=== PATIENT | female | born 2000 | race Caucasian/White ===

== ENCOUNTER 2020-05-23 14:26 | Emergency (ER) | payer MEDICAID, SELFPAY ==
--- NOTE | ~2020-05-23 | US_ITS ---
EXAMINATION: LEFT LOWER EXTREMITY DEEP VENOUS ULTRASOUND CLINICAL INFORMATION: Left lower extremity pain COMPARISON: None. TECHNIQUE: Duplex Doppler imaging with compression maneuvers were performed of the left lower extremity deep venous system. FINDINGS: The visualized common femoral, femoral and popliteal veins demonstrate normal compressibility and color flow without evidence of venous thrombosis. Visualized portions of the calf veins demonstrate normal color fill-in suggesting patency. There is no evidence of a Irvin's cyst. US/US venous duplex LE LT IMPRESSION: No evidence of deep venous thrombosis involving the left lower extremity.
[2020-05-23 14:43] VITALS: BP 126/80; PULSE 81; RESP 16; TEMP 36.9; O2SAT 99; BMI 26.4
--- NOTE | 2020-05-23 17:20 | ED.LOWEXIN ---
HPI - Extremity Injury (Lower) General Chief Complaint: Extremity Injury, Lower Stated Complaint: blood clot left leg Time Seen by Provider: 05/23/20 15:53 Source: patient Mode of arrival: ambulatory History of Present Illness HPI Narrative: 20-year-old female with past medical history of asthma presenting to the ED complaining of right lower extremity pain and swelling from calf to thigh x2 weeks. States she is concerned for DVT. Denies recent travel, cigarette smoking, history of clots, oral OCPs, trauma/falls, shortness of breath/cough, chest pain MD complaint: leg injury Related Data Allergies Allergy/AdvReac Type Severity Reaction Status Date / Time No Known Allergies Allergy Unverified 11/17/19 17:05 Review of Systems Review of Systems: Constitutional: No Fever, No Chills Cardiovascular: No Chest Pain, No SOB Musculoskeletal:+ joint pain, No Myalgias, + Joint Swelling Skin: No Skin Lesions, No rash Neuro: No Weakness, No Numbness, No Paresthesias Yes all other systems are reviewed and are negative PMFSH Past Medical History Attestation statement: The following information was validated with the patient. Medical History (Updated 05/23/20 @ 18:09 by MARIAN Loya) Asthma Social History Social History Alcohol intake: never Smoked in Last 30 Days: No Substance Use Type: Marijuana Advance Directives: No Advance Directives Information Provided: No Physical Exam Vital Signs: Vital Signs: Last Vital Signs Temp 98.5 F 05/23/20 14:43 Pulse 81 05/23/20 14:43 Resp 16 05/23/20 14:43 BP 126/80 05/23/20 14:43 Pulse Ox 99 05/23/20 14:43 Body Mass Index 26.4 Const: General: cooperative and healthy appearing Orientation/consciousness: patient oriented x3 Limitations: no limitations HENMT: Head: Yes normal to inspection Ears: hearing grossly normal bilaterally General nose exam: Normal external nose present Face and sinus: Yes normal facial exam Eyes: General: appearance normal, both eyes and all related structures EOM: EOMs intact bilaterally Neck: Neck: Yes normal visual inspection Resp: Effort & Inspection: normal respiratory effort Cardio: Rate: regular rate Peripheral pulses: dorsalis pedis present Skin: Rashes: no rashes Wounds: no wounds Neuro: General: patient oriented x3, gait normal, tone normal and moves all extremities Gait exam (Neuro): Normal gait present Extrem: Other: No lower extremity cellulitis, erythema, fluctuance/ induration or streaking General: Yes normal to inspection, Yes no pedal edema and Yes calf tenderness (left) Course Course Course Narrative: US venous duplex LE LT IMPRESSION: No evidence of deep venous thrombosis involving the left lower extremity. >> results discussed with patient including worrisome signs and symptoms and strict return precautions. She verbalized understanding feel safe for discharge home follow-up PCP MDM - Extremity Injury (Lower) MDM Narrative Medical decision making narrative: 20-year-old female with past medical history of asthma presenting to the ED complaining of right lower extremity pain and swelling from calf to thigh x2 weeks. On exam VSS, NAD/well-appearing, left lower extremity with calf tenderness, no appreciable swelling/edema. No appreciable cellulitis Plan: Venous duplex ultrasound Discharge Plan Discharge Clinical Impression: Leg pain, left Patient Disposition: Home, Self-Care Instructions: Leg Pain (ED) Additional Instructions: Your ultrasound was negative for any blood clot You may ice and heat your leg Take Tylenol Motrin for pain Elevate Follow-up with her primary care doctor If her pain persists or worsen, he develops any signs of infection, there is red streaking, numbness, tingling or weakness return to the ED Referrals: Name,MD Pawel [Primary Care Provider] - 2 days
== END 2020-05-23 18:37 | disposition home or self-care (01) ==
PROVIDERS: Emergency Provider Emergency Medicine; PCP Internal Medicine Geriatric Medicine
DX: R60.0 Localized edema (principal); M79.605 Pain in left leg
CPT/HCPCS: 93971; 99284

== ENCOUNTER → 2020-06-27 10:29 | Outpatient (BNVA) | payer MEDICAID, SELFPAY | PROVIDERS: Visit Provider Advanced Practice Midwife | DX: Z32.02 Encounter for pregnancy test, result negative (principal); Z30.09 Encounter for other general counseling and advice on contraception | CPT/HCPCS: 81025; 99212 ==

== ENCOUNTER 2020-07-07 17:08 | Emergency (ER) | payer MEDICAID, SELFPAY ==
--- NOTE | ~2020-07-07 | XR_ITS ---
EXAMINATION: XR CHEST CLINICAL INFORMATION: Hemoptysis COMPARISON: None TECHNIQUE: Frontal view of the chest was obtained. FINDINGS: No significant abnormality is noted involving the heart, lungs, mediastinum, bony thorax or soft tissues. XR/XR chest 1V IMPRESSION: Normal chest x-ray.
[2020-07-07 17:20] VITALS: BP 117/76; PULSE 85; RESP 16; TEMP 36.5; O2SAT 99; BMI 28.1
--- NOTE | 2020-07-07 17:41 | ED_ITS ---
HPI - General Adult General Chief complaint: Epistaxis Stated complaint: Coughing up blood Time Seen by Provider: 07/07/20 17:33 Source: patient Mode of arrival: ambulatory Limitations: no limitations History of Present Illness HPI narrative: Patient comes emergency room complaining of seasonal allergies. Patient states that she has had stuffy nose for 3 weeks, sneezing, epistaxis, and recently noticed that she has been coughing up blood, very small amounts. Patient denies chest pain or shortness of breath. No fever. Related Data Previous Rx's Medication Instructions Recorded norethindrone 1 mg-ethinyl 1 tab PO DAILY #28 tab 06/27/20 estradiol 20 mcg (24)-iron 75 mg (4) tablet cetirizine [Zyrtec] 10 mg PO DAILY #20 tab 07/07/20 fluticasone propionate [Flonase 1 spray INTRANASAL Q12H #16 g 07/07/20 Allergy Relief] Allergies Allergy/AdvReac Type Severity Reaction Status Date / Time No Known Allergies Allergy Verified 06/27/20 10:43 Review of Systems Review of Systems: Constitutional : No Weight loss, No Fever, No Chills, No Night Sweats, No Fatigue, No Malaise ENT/Mouth : No Hearing loss, complaining of bilateral ear fullness with no pain, complaining of nasal congestion, No Sinus Pain, No Hoarseness, No sore throat, No Swallowing Difficulty Eyes: No Eye Pain, No Swelling, occasional Redness and itching, No Foreign Body, No Discharge, No Vision Changes Cardiovascular : No Chest Pain, No SOB, No Dyspnea on Exertion, No Orthopnea, No Edema, No Palpitations Respiratory : Dry Cough, No Sputum, occasional asthma exacerbations, No Smoke Exposure, No Dyspnea, occasional hemoptysis Gastrointestinal : No Nausea, No Vomiting, No Diarrhea, No Constipation, No abdominal Pain, No Hematochezia, No Melena Genitourinary : no irregular bleeding, No Dysuria, No Urinary Frequency, No Hematuria, No Urinary Incontinence, No Urgency, No Flank Pain, No Urinary Flow Changes, No Hesitancy Musculoskeletal : No joint pain, No Myalgias, No Joint Swelling Skin : No Skin Lesions, No rash Neuro : No Weakness, No Numbness, No Paresthesias, No Loss of Consciousness, No Dizziness, No Headache Psych : No Anxiety/Panic, No Depression, No SI/HI/AH/VH, No Social Issues, Heme/Lymph: No Bruising, No Bleeding,No Lymphadenopathy Endocrine : No Polyuria, No Polydipsia, No Temperature Intolerance [facility] Past Medical History Medical History Asthma Seasonal allergies Social History Social History (Updated 06/27/20 @ 10:44 by Katie Baca CMA) Alcohol intake: never Smoked in Last 30 Days: No Use of substances other than those prescribed or required for medical reasons: No Substance Use Type: Marijuana Advance Directives: No Advance Directives Information Provided: Yes Patient : No Gender identity: female Physical Exam Vital Signs: Vital Signs: Last Vital Signs Temp 97.7 F 07/07/20 17:20 Pulse 85 07/07/20 17:20 Resp 18 07/07/20 18:00 BP 117/76 07/07/20 17:20 Pulse Ox 99 07/07/20 17:20 Body Mass Index 28.1 Appearance: Alert. Oriented X3. No acute distress. Eyes: Pupils equal, round and reactive to light. ENT: Pharynx normal. Nasal congestion, no epistaxis Neck: Normal inspection. Neck supple. No lymph nodes noted. No crepitus CVS: Normal heart rate and rhythm. Pulses normal. Normal S1 and S2 Respiratory: No respiratory distress. Breath sounds normal. No Wheezing. No rales Abdomen: Soft and nontender. No rigidity. No distention. good BS x4 Skin: Skin warm and dry. Normal skin color. Normal skin turgor. Extremities: No lower extremity edema. No lower extremity edema. No Lacerations. No Rash Neuro: Oriented X 3. No motor deficit. No sensory deficit. Moving all extermities. No slurred speech. Course Course Course Narrative: I discussed the x-ray with the patient, patient likely having specks of blood when she coughs, unlikely to be coming from the lungs, most likely secondary to the epistaxis. Medical Decision Making Imaging Data Chest x-ray: Radiologist's impression: No significant abnormality is noted involving the heart, lungs, mediastinum, bony thorax or soft tissues. XR/XR chest 1V IMPRESSION: Normal chest x-ray. Discharge Plan Discharge Clinical Impression: Acute seasonal allergic rhinitis Patient Disposition: Home, Self-Care Instructions: Allergies (ED) Additional Instructions: Please follow-up with your primary care physician tomorrow. If you have any worsening or new symptoms, please return to the emergency room or call 911 Prescriptions: New cetirizine [Zyrtec] 10 mg tablet 10 mg PO DAILY Qty: 20 RF: 0 fluticasone propionate [Flonase Allergy Relief] 50 mcg/actuation spray,suspension 1 spray intranasal Q12H Qty: 16 RF: 0 No Action norethindrone-e.estradiol-iron 1 mg-20 mcg (24)/75 mg (4) tablet 1 tab PO DAILY Qty: 28 RF: 4
[2020-07-07 18:00] VITALS: RESP 18
--- NOTE | 2020-07-07 19:37 | PC.NURSE ---
no epistaxis noted since arrival in ed. Pt speaking on phone. rr even and unlabored. skin p/w/d.
== END 2020-07-07 20:11 | disposition home or self-care (01) ==
PROVIDERS: Emergency Provider Emergency Medicine; PCP Internal Medicine Geriatric Medicine
DX: J30.2 Other seasonal allergic rhinitis (principal); J45.909 Unspecified asthma, uncomplicated; F12.90 Cannabis use, unspecified, uncomplicated
CPT/HCPCS: 71045; 99283; 99284

== ENCOUNTER 2020-11-02 19:52 | Emergency (ER) | payer MEDICAID, SELFPAY ==
--- NOTE | 2020-11-02 21:07 | PC.NURSE ---
CALLED FOR TRIAGE, NO RESPONSE
--- NOTE | 2020-11-02 21:18 | PC.NURSE ---
CALLED AGAIN, NO RESPONSE
== END 2020-11-02 22:12 | disposition left against medical advice (07) ==
PROVIDERS: Emergency Provider Emergency Medicine; PCP Nurse Practitioner Primary Care
DX: R05 Cough (principal)

== ENCOUNTER 2020-12-19 10:46 | Outpatient (RCR) | payer MEDICAID, SELFPAY | END 2021-05-27 14:53 | disposition home or self-care (01) | LOC: HO.PT 10:46 | PROVIDERS: PCP Nurse Practitioner Primary Care; Visit Provider Nurse Practitioner Primary Care | DX: M54.50 Low back pain, unspecified (principal) | CPT/HCPCS: 97110; 97112; 97162 ==

== ENCOUNTER 2021-01-02 11:00 | Outpatient (REF) | payer MEDICAID, SELFPAY ==
[2021-01-02 15:57] LABS: CT PCR NOT DETECTED (Not Detect.); NG PCR NOT DETECTED (Not Detect.)
[2021-01-03 11:05] LABS: BV Int Neg Control Negative (Negative); BV Int Pos Control Positive (Positive)
== END 2021-01-02 11:01 | disposition home or self-care (01) ==
LOC: HO.LAB 11:00
PROVIDERS: Visit Provider Advanced Practice Midwife
DX: Z30.09 Encounter for other general counseling and advice on contraception (principal); N89.8 Other specified noninflammatory disorders of vagina; Z20.2 Contact with and (suspected) exposure to infections with a predominantly sexual mode of transmission; N92.1 Excessive and frequent menstruation with irregular cycle
CPT/HCPCS: 87480; 87491; 87510; 87591; 87660; 99212

== ENCOUNTER 2021-02-01 19:35 | Emergency (ER) | payer MEDICAID, SELFPAY | END 2021-02-01 20:42 | disposition left against medical advice (07) | PROVIDERS: Emergency Provider Emergency Medicine | DX: H53.8 Other visual disturbances (principal) ==

== ENCOUNTER → 2021-03-28 09:30 | Outpatient (BNVA) | payer MEDICAID, SELFPAY | PROVIDERS: Visit Provider Advanced Practice Midwife | DX: N91.2 Amenorrhea, unspecified (principal); Z30.09 Encounter for other general counseling and advice on contraception; N92.1 Excessive and frequent menstruation with irregular cycle; R53.83 Other fatigue; Z62.810 Personal history of physical and sexual abuse in childhood; Z20.2 Contact with and (suspected) exposure to infections with a predominantly sexual mode of transmission | CPT/HCPCS: 81025; 99212 ==

== ENCOUNTER 2021-04-24 00:20 | Emergency (ER) | payer MEDICAID, SELFPAY ==
[2021-04-24 00:54] VITALS: BP 122/90; PULSE 83; RESP 18; TEMP 36.9; O2SAT 100; BMI 24.3
[2021-04-24 04:04] VITALS: BP 122/80; PULSE 78; RESP 12; TEMP 36.6; O2SAT 100
--- NOTE | 2021-04-24 04:23 | ED_ITS ---
HPI - Headache General Chief Complaint: Headache Stated Complaint: head inj at work Time Seen by Provider: 04/24/21 04:22 Source: patient Mode of arrival: ambulatory History of Present Illness HPI Narrative: 21-year-old female without significant past medical history presents with complaints that she hit her head on the stairs at work without loss of consciousness and denies any subsequent nausea or vomiting and does not take any blood thinners. She complains of headache to the left side of her head at this time. Related Data Home Medications Medication Instructions Recorded Confirmed albuterol sulfate 90 mcg/actuation 2 puff INHALATION Q6H PRN 03/28/21 03/28/21 aerosol inhaler Previous Rx's Medication Instructions Recorded fluticasone propionate 50 1 spray INTRANASAL Q12H #16 g 07/07/20 mcg/actuation nasal spray,suspension (Flonase Allergy Relief) Allergies Allergy/AdvReac Type Severity Reaction Status Date / Time Seasonal Allergies Allergy Unknown Verified 04/24/21 00:54 Review of Systems Review of Systems: Pertinent positives and negatives as stated in HPI 10 point review of systems is otherwise negative. PMFSH Past Medical History Source: nursing notes reviewed Medical History Asthma Seasonal allergies Social History Social History Alcohol intake: never Substance Use Type: Marijuana Advance Directives: No Advance Directives Information Provided: No Patient : No Gender identity: Female Physical Exam Vital Signs: Vital Signs: Last Vital Signs Temp 97.9 F 04/24/21 04:04 Pulse 78 04/24/21 04:04 Resp 12 04/24/21 04:04 BP 122/80 04/24/21 04:04 Pulse Ox 100 04/24/21 04:04 BMI result Body Mass Index 24.3 VITAL SIGNS: Reviewed. GENERAL: Well developed, well nourished, in no acute distress. HEAD: Normocephalic/atraumatic, unable to locate any visible manifestation of patient's injury but there is no erythema/abrasions/induration/ecchymosis EYES: PERRLA, EOMI OROPHARYNX: no oral lesions noted, posterior pharynx clear LUNGS: Normal breath sounds. No adventitious sounds or accessory muscle use. SpO2<100> CARDIOVASCULAR: Regular rate and rhythm without noted murmurs ABDOMEN: Soft, non-tender, non-distended with bowel sounds. NEUROLOGIC: Alert and oriented x 4. Strength and sensation to light touch were grossly intact x 4. Course Course Course Narrative: 21-year-old female with history and clinical presentation consistent with a mild head strike without loss of consciousness. Combination analgesics were provided and on re-evaluation patient is feeling better and was discharged home in stable condition. Discharge Plan Discharge Clinical Impression: Contusion Patient Disposition: Home, Self-Care Instructions: General Headache (ED) Additional Instructions: 1. Recommend [id number] Tylenol/ibuprofen as needed for headache. 2. Follow-up with your primary care provider for re-evaluation further outpa tient management. Return to the ER for worsening symptoms. 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
[2021-04-24] MEDS: Ibuprofen 400 MG TABLET PO (04:36)
[2021-04-24] MEDS: Acetaminophen 325 MG TABLET 975 MG PO (04:36)
== END 2021-04-24 04:37 | disposition home or self-care (01) ==
PROVIDERS: Emergency Provider Student in an Organized Health Care Education/Training Program; PCP Nurse Practitioner Primary Care
DX: S00.93XA Contusion of unspecified part of head, initial encounter (principal); W22.09XA Striking against other stationary object, initial encounter; R51.9 Headache, unspecified; Y93.89 Activity, other specified; Y92.59 Other trade areas as the place of occurrence of the external cause; Y99.0 Civilian activity done for income or pay
CPT/HCPCS: 99283

== ENCOUNTER 2021-05-09 11:30 | Outpatient (REF) | payer MEDICAID, SELFPAY ==
--- NOTE | ~2021-05-09 | US_ITS ---
EXAMINATION: US PELVIS CLINICAL INFORMATION: Amenorrhea COMPARISON: None TECHNIQUE: Ultrasound of the pelvis is performed using both transabdominal and transvaginal transducers along with Doppler. Transvaginal imaging is performed due to inadequate visualization transabdominally. FINDINGS: Uterus: The uterus is retroverted and measures 8.2 x 3.4 x 4.8 cm. The double wall endometrial thickness is 0.6 mm. The uterus is smooth in contour and has normal myometrial echogenicity. No visible fibroid. Adnexa: Both ovaries are visualized. There is normal color flow to the adnexa. There is no ovarian torsion. There is no pelvic ascites or fluid collection. Right ovary measures 4 x 2.5 x 2.5 cm. Multiple peripheral small follicles are seen, with at least 10 follicles visualized. Left ovary measures 3.3 x 1.5 x 2.5 cm. Multiple peripheral small follicles are seen with at least 8 follicles noted. US/US pelvic and transvaginal IMPRESSION: Multiple bilateral small peripheral ovarian follicles. Correlate for PCOS. Normal appearance of the uterus.
== END 2021-05-09 11:31 | disposition home or self-care (01) ==
LOC: HO.US 11:30
PROVIDERS: Visit Provider Advanced Practice Midwife
DX: N91.2 Amenorrhea, unspecified (principal); N92.1 Excessive and frequent menstruation with irregular cycle; R53.83 Other fatigue; Z20.2 Contact with and (suspected) exposure to infections with a predominantly sexual mode of transmission; Z62.810 Personal history of physical and sexual abuse in childhood
CPT/HCPCS: 76830; 76856

== ENCOUNTER 2021-07-08 11:35 | Outpatient (REF) | payer MEDICAID, SELFPAY ==
[2021-07-08 17:17] LABS: CT PCR NOT DETECTED (Not Detect.); NG PCR NOT DETECTED (Not Detect.)
[2021-07-09 11:14] LABS: BV Int Neg Control Negative (Negative); BV Int Pos Control Positive (Positive)
== END 2021-07-08 11:36 | disposition home or self-care (01) ==
LOC: HO.LAB 11:35
PROVIDERS: PCP Nurse Practitioner Primary Care; Visit Provider Advanced Practice Midwife
DX: Z30.09 Encounter for other general counseling and advice on contraception (principal); Z20.2 Contact with and (suspected) exposure to infections with a predominantly sexual mode of transmission; E28.2 Polycystic ovarian syndrome
CPT/HCPCS: 87480; 87491; 87510; 87591; 87660; 88142

== ENCOUNTER 2021-10-16 14:28 | Outpatient (REF) | payer MEDICAID, SELFPAY | END 2021-10-16 14:29 | disposition home or self-care (01) | LOC: HO.LAB 14:28 | PROVIDERS: Visit Provider Advanced Practice Midwife | DX: Z12.4 Encounter for screening for malignant neoplasm of cervix (principal); E28.2 Polycystic ovarian syndrome; Z78.9 Other specified health status | CPT/HCPCS: 88142; 99212 ==

== ENCOUNTER 2021-10-24 13:36 | Outpatient (REF) | payer MEDICAID, SELFPAY ==
--- NOTE | ~2021-10-24 | XR_ITS ---
EXAMINATION: XR CERVICAL SPINE CLINICAL INFORMATION: Neck pain COMPARISON: None TECHNIQUE: 3 views of the cervical spine were obtained. FINDINGS: Bone alignment is normal. No fracture or dislocation is seen. Disc spaces are normal. Prevertebral soft tissues are normal. XR/XR cervical spine 3V IMPRESSION: Unremarkable examination.
== END 2021-10-24 13:37 | disposition home or self-care (01) ==
LOC: HO.XRAY 13:36
PROVIDERS: Visit Provider Nurse Practitioner Family
DX: M54.6 Pain in thoracic spine (principal)
CPT/HCPCS: 72040

== ENCOUNTER 2023-03-20 10:46 | Outpatient (REF) | payer MEDICAID, SELFPAY ==
[2023-03-21 06:05] LABS: CT PCR NOT DETECTED (Not Detect.); NG PCR NOT DETECTED (Not Detect.)
[2023-03-21 12:50] LABS: BV Int Neg Control Negative (Negative); BV Int Pos Control Positive (Positive)
== END 2023-03-20 10:47 | disposition home or self-care (01) ==
LOC: HO.LNP 10:46
PROVIDERS: PCP Nurse Practitioner Primary Care; Visit Provider Advanced Practice Midwife
DX: Z01.419 Encounter for gynecological examination (general) (routine) without abnormal findings (principal); E28.2 Polycystic ovarian syndrome; Z20.2 Contact with and (suspected) exposure to infections with a predominantly sexual mode of transmission; Z79.899 Other long term (current) drug therapy
CPT/HCPCS: 0353U; 87480; 87510; 87660; 99395

== ENCOUNTER 2023-03-20 10:46 | Outpatient (AMB) | payer MEDICAID, SELFPAY ==
--- NOTE | 2023-03-20 10:57 | MHC.OFFVIS ---
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 Tub Wash Operator Required: No Information Interpreted: non-clinical & clinical Registered Vascular Technologist (Rvt): Registered Vascular Technologist (Rvt) Present (Andra) Allergies Seasonal Allergies Allergy (Verified 03/20/23 11:01) Unknown Medication List - Last Reconciled 03/20/23 by Jaki Lopez CNM albuterol sulfate 90 mcg/actuation 2 puffs inhalation Q6H PRN cetirizine 10 mg PO QAM doxycycline hyclate 100 mg PO QAM fluticasone propion-salmeterol 230-21 mcg/actuation (Advair HFA) inhalation fluticasone propionate 50 mcg/actuation (Flonase Allergy Relief) 1 spray intranasal Q12H Is last menstrual period known: Yes Last menstrual period: 02/18/23 Post menopausal: No 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 She wonders if she might have trouble because her periods are irregular though when I had her go over the last 2 they were 30 days apart her last period came February 18 and ended on the and her previous period in December came on the as well what she thought was irregular is that sometimes the periods comes for a few days then it stops and then it starts back up again but that has been known to happen in the middle of a menses as well. Her last Pap was normal and she has no history of abnormal Paps. [facility] [place] Medical History (Updated 03/20/23 @ 13:21 by Jaki Lopez CNM) PCOS (polycystic ovarian syndrome) Seasonal allergies Asthma Surgical History (Updated 03/20/23 @ 11:03 by CHICA Davis) Hx of tonsillectomy Social History (Updated 03/20/23 @ 11:03 by CHICA Davis) Alcohol intake: current Alcohol intake frequency: holidays/special occasions only Substance Use Type: Marijuana Gender identity: Female Female Reproductive History Menstrual Age of Menarche: 8 Duration of menses: 6-7 days Date of last menstrual period: 02/18/23 control method: none Total pregnancies: 0 Date of last pap smear: 10/17/21 (negative) Physical Exam Vital Signs: Last Vital Signs BP 118/72 03/20/23 10:59 BMI result Body Mass Index 30.4 Const General: healthy appearing, comfortable, no acute distress, well developed and alert Nutritional Appearance: average body habitus Orientation/consciousness: patient oriented x3 Limitations: no limitations HEENT Head: Yes normocephalic Neck Neck: Yes normal visual inspection Chest Chest palpation & inspection: normal inspection of the chest Breast/axilla inspection: normal inspection of the breasts and normal inspection of the axillae Breast/axilla palpation: normal palpation of the breasts and normal palpation of the axillae Resp Effort & Inspection: normal respiratory effort GI Inspection: Yes normal to inspection, No Abdominal wall edema and No distended Palpation (GI): Soft to palpation and nontender Other: Vagina pink clear discharge scant and white consistent with luteal phase. Cervix nulliparous pink. Long close thick mobile nontender. Uterus is midposition mobile nontender good tone with Kegel. Adnexa not enlarged. General: Yes bladder normal to palpation External Female Exam: normal external appearance and normal appearance of the urethra Speculum Exam - Vagina: normal appearance of the vagina, normal palpation and normal vaginal discharge Speculum Exam - Cervix: normal appearance of the cervix, normal palpation and nontender Bimanual exam- vagina & uterus: normal bimanual exam, normal palpation, uterine size normal, bladder normal to palpation, consistency normal, normal palpation, uterine mobility normal, uterine shape normal, No Cervical tenderness present, non-tender and no cervical motion tenderness Bimanual Exam- Adnexa, other: normal adnexae, no masses, normal and No adnexal tenderness Neuro General: patient oriented x3 Assessment & Plan Assessment & Plan (1) PCOS (polycystic ovarian syndrome): Code(s): E28.2 - Polycystic ovarian syndrome (2) Cervical cancer screening: Comment: 10/16/2021 Pap= negative Code(s): Z12.4 - Encounter for screening for malignant neoplasm of cervix (3) Well woman exam with routine gynecological exam: Code(s): Z01.419 - Encounter for gynecological examination (general) (routine) without abnormal findings (4) Family planning education, guidance, and counseling: Code(s): Z30.09 - Encounter for other general counseling and advice on contraception Plan -----Discussed in this visit the following: healthy balanced diet, regular and consistent exercise, getting recommended health screens, doing the best she can for her particular health concerns, kegel exercises, pap smear screening and followup recommendations, mammography screening and SBE, normal changes in cycles in her life stage--- . Discussed her menstrual cycles and the fact that really they are normal. At least from what she described to me. Discussed continuing to keep track of the cycles and discussed her optimal fertility time she does think she is aware of it. She said she was trying but she and her partner are currently on a little break discussed safer sex if they resume being together to protect from STDs. Discussed continuing keep records because should she have difficulty getting it would be beneficial to her to have a 1 year accounting her menstrual history and records and dates of any proof of ovulation etc. before seeking care at [facility] reproductive endocrinology. She accepted testing but did not want any further STI tests other than what was done during the exam. Orders: Orders Bacterial Vaginosis Panel Today Z20.2 - Contact with and (suspected) exposure to infections with a predominantly sexual mode of transmission CT NG by PCR Today Z20.2 - Contact with and (suspected) exposure to infections with a predominantly sexual mode of transmission Coding Level of Care Code Est Pt Prev Care [id number]) Diagnoses PCOS (polycystic ovarian syndrome) E28.2 Cervical cancer screening Z12.4 Well woman exam with routine gynecological exam Z01.419 Family planning education, guidance, and counseling Z30.09
[2023-03-20 10:59] VITALS: BP 118/72; BMI 30.4
== END 2023-03-20 13:52 | disposition home or self-care (01) ==
LOC: HO.HWSM 10:46
PROVIDERS: PCP Nurse Practitioner Primary Care; Visit Provider Advanced Practice Midwife
DX: E28.2 Polycystic ovarian syndrome (principal); Z12.4 Encounter for screening for malignant neoplasm of cervix; Z01.419 Encounter for gynecological examination (general) (routine) without abnormal findings; Z30.09 Encounter for other general counseling and advice on contraception
CPT/HCPCS: 99395